=== PATIENT | female | born 1955 | race Caucasian/White ===

== ENCOUNTER → 2019-05-07 | Outpatient (CLI) | payer OTHER ==
[~2019-05-07] MED LIST: PERCOCET 5-3251 EACH PO; ROBAXIN 750 MG750 M1 PO
== END ==
LOC: M.RAD 05-06 09:36
DX: Z51.12 Encounter for antineoplastic immunotherapy (principal); C50.111 Malignant neoplasm of central portion of right female breast; C34.11 Malignant neoplasm of upper lobe, right bronchus or lung; R92.1 Mammographic calcification found on diagnostic imaging of breast